=== PATIENT | male | born 1995 | race American Indian/Alaskan Native ===

== ENCOUNTER 2016-12-22 14:12 | Emergency (ER) | payer BC ==
[2016-12-22 14:19] VITALS: BP 115/83
--- NOTE | 2016-12-22 14:57 | Emergency Department Report ---
ED Upper Extremity Inj HPI - General Chief Complaint: Extremity Injury, Upper Stated Complaint: POSS BROKEN FINGER Time Seen by Provider: 12/22/16 14:55 Source: patient Mode of arrival: Ambulatory Limitations: No Limitations - History of Present Illness Initial Comments: Reports he slipped and fell 3 days ago and no injury from that but then got mad and punched a truck. Now has R hand pain and swelling. Hx of Boxers fracture to same hand 3 years ago. No numbness. Complaint: Injury to:: right, hand -: Sudden, days(s) (3) Other Injuries: none Place: work Improves With: none Worsens With: none Context: direct blow Associated Symptoms: denies other symptoms - Related Data Previous Rx's Medication Instructions Recorded Last Taken Type Ibuprofen [Motrin 800 MG tab] 800 mg PO TID PRN #30 tablet 12/22/16 Unknown Rx Allergies Allergy/AdvReac Type Severity Reaction Status Date / Time No Known Allergies Allergy Unverified 08/31/13 14:20 ED Review of Systems ROS: Stated complaint: POSS BROKEN FINGER Other details as noted in HPI Comment: All other systems reviewed and negative Constitutional: denies: chills, fever Eyes: denies: eye pain, eye discharge, vision change ENT: denies: ear pain, throat pain Respiratory: denies: cough, shortness of breath, wheezing Cardiovascular: denies: chest pain, palpitations Endocrine: no symptoms reported Gastrointestinal: denies: abdominal pain, nausea, diarrhea Genitourinary: denies: urgency, dysuria Musculoskeletal: joint swelling, arthralgia. denies: back pain Skin: denies: rash, lesions Neurological: denies: headache, weakness, paresthesias Psychiatric: denies: anxiety, depression Hematological/Lymphatic: denies: easy bleeding, easy bruising ED Past Medical Hx - Past Medical History Previous Medical History?: No - Surgical History Past Surgical History?: No - Social History Smoking Status: Current Every Day Smoker Substance Use Type: Alcohol - Medications Home Medications: Home Medications Medication Instructions Recorded Confirmed Last Taken Type Ibuprofen [Motrin 800 MG tab] 800 mg PO TID PRN #30 tablet 12/22/16 Unknown Rx ED Physical Exam - General Limitations: No Limitations General appearance: alert, in no apparent distress - Head Head exam: Present: atraumatic, normocephalic - Eye Eye exam: Present: normal appearance - ENT ENT exam: Present: mucous membranes moist - Neck Neck exam: Present: normal inspection - Respiratory Respiratory exam: Present: normal lung sounds bilaterally. Absent: respiratory distress - Cardiovascular Cardiovascular Exam: Present: regular rate, normal rhythm. Absent: systolic murmur, diastolic murmur, rubs, gallop - GI/Abdominal GI/Abdominal exam: Present: soft, normal bowel sounds - Rectal Rectal exam: Present: deferred - Extremities Exam Extremities exam: Present: other (Mild swelling and tenderness overlying 4th/ 5th R metacarpals. Full ROM. CMS/tendons intact. ) - Back Exam Back exam: Present: normal inspection - Neurological Exam Neurological exam: Present: alert, oriented X3 - Psychiatric Psychiatric exam: Present: normal affect, normal mood - Skin Skin exam: Present: warm, dry, intact, normal color. Absent: rash ED Course Vital Signs 12/22/16 14:16 Temperature 98.4 F Pulse Rate 94 H Respiratory 18 Rate Blood Pressure 115/83 O2 Sat by Pulse 98 Oximetry - Reevaluation(s) Reevaluation #1: 12/22/16 15:37 NAD, stable for d/c. ED Medical Decision Making - Radiology Data Radiology results: report reviewed 5th metacarpal fx - Medical Decision Making Pt given splint and ortho follow up for Boxers fracture. - Differential Diagnosis fx, sprain Critical care attestation.: If time is entered above; I have spent that time in minutes in the direct care of this critically ill patient, excluding procedure time. ED Disposition Clinical Impression: Fracture of fifth metacarpal bone Qualifiers: Encounter type: initial encounter Fracture type: closed Metacarpal location: shaft Fracture alignment: displaced Laterality: right Qualified Code(s): S62.326A - Displaced fracture of shaft of fifth metacarpal bone, right hand, initial encounter for closed fracture Disposition: DISCHARGED TO HOME OR SELFCARE Is pt being admited?: No Condition: Good Instructions: Boxer Fracture (ED) Prescriptions: Ibuprofen [Motrin 800 MG tab] 800 mg PO TID PRN #30 tablet PRN Reason: Pain Referrals: PRIMARY CARE,MD [Primary Care Provider] - 3-5 Days DIAMOND MATHIS MD [Staff Physician] - 3-5 Days Time of Disposition: 15:39
--- NOTE | 2016-12-22 15:23 | XRay Report ---
RIGHT HAND, 3 views: History: Right hand pain. There is a transverse fracture through the midshaft of the fifth metacarpal with 22 degrees anterior angulation. This appears to be a new fracture at an old fifth metacarpal fracture site which was demonstrated on 02/03/12 exam. Please correlate with the patient's history. The remaining bony structures and joint spaces are unremarkable. IMPRESSION: Traumatic fracture, right fifth metacarpal.
== END 2016-12-22 16:29 | disposition home or self-care (01) ==
LOC: ED 14:12
DX: S62.326A Displaced fracture of shaft of fifth metacarpal bone, right hand, initial encounter for closed fracture (principal); F17.200 Nicotine dependence, unspecified, uncomplicated; W26.8XXA Contact with other sharp object(s), not elsewhere classified, initial encounter; Y93.89 Activity, other specified; Y99.9 Unspecified external cause status; Y92.89 Other specified places as the place of occurrence of the external cause